=== PATIENT | female | born 1995 | race Caucasian/White ===

== ENCOUNTER 2018-11-12 12:11 | Emergency (ER) | payer BC ==
[~2018-11-12] VITALS: Ht 177.8 cm; Wt 59.0 kg
[2018-11-12 12:17] VITALS: BP 115/70
[2018-11-12] MEDS ORDERED: DEXAMETHASONE SOD PHOSPHATE 10 MG/ML VIAL ONE (12:58)
[2018-11-12] MEDS ORDERED: cetrizine 10 MG TABLET ONE (12:58)
[2018-11-12] MEDS ORDERED: FAMOTIDINE (20 MG) 20 MG TABLET ONE (12:58)
[2018-11-12] MEDS ORDERED: cetrizine 10 MG TABLET PO ONE (13:00)
[2018-11-12] MEDS ORDERED: FAMOTIDINE (20 MG) 20 MG TABLET PO ONE (13:00)
[2018-11-12] MEDS ORDERED: DEXAMETHASONE SOD PHOSPHATE 4 MG/ML VIAL IM ONE (13:00)
== END 2018-11-12 13:17 | disposition home or self-care (01) ==
LOC: ER 12:13
DX: L50.0 Allergic urticaria (principal); J45.909 Unspecified asthma, uncomplicated; Z90.89 Acquired absence of other organs; Z98.890 Other specified postprocedural states; Z88.1 Allergy status to other antibiotic agents
CPT/HCPCS: 96372; 99283; J1100